=== PATIENT | male | born 1985 | race Caucasian/White ===

== ENCOUNTER 2019-02-03 17:08 | Emergency (ER) | payer BC ==
[2019-02-03] MEDS ORDERED: TOPROL XL50 MG PO (17:25)
[2019-02-03] MEDS ORDERED: ALEVE220 MG PO (17:26)
[2019-02-03] MEDS ORDERED: KLONOPIN0.5 MG PO (17:26)
[2019-02-03] MEDS ORDERED: BENADRYL25 MG PO (17:26)
[2019-02-03] MEDS ORDERED: CYCLOBENZAPRINE10 MG PO (17:27)
[2019-02-03] MEDS ORDERED: ALBUTEROL SULF8.5 GM INH (17:27)
[2019-02-03] MEDS ORDERED: NEXIUM20 MG PO (17:28)
[2019-02-03 19:05] LABS: BASOPHILS 0.2 % (0-2); EOSINOPHILS 0.7 % (0-7); HEMATOCRIT 45.5 % (42.0-54.0); HEMOGLOBIN 15.9 g/dL (13.5-17.5); IMMATURE GRANULOCYTES 0.4 % (0-5); LYMPHOCYTES 20.3 % (15-50); MCHC 34.9 g/dL (31.0-37.0); MCV 85.8 fL (80.0-100.0); MEAN PLATELET VOLUME 9.6 fL (7.4-10.4); MONOCYTES 6.4 % (2-11); PLATELET COUNT 208 10x3/uL (130-400); RDW 13.4 % (11.5-14.5); WBC 10.6 10x3/uL (4.8-10.8)
[2019-02-03 19:24] LABS: ALBUMIN 3.8 g/dL (3.4-5.0); ALKALINE PHOSPHATASE 109 U/L (46-116); ALT (SGPT) 98 U/L (10-68); BILIRUBIN - TOTAL 0.69 mg/dL (0.2-1.3); CALC OSMOLALITY 279 mosm/kg (275-300); CALCIUM 9.1 mg/dL (8.5-10.1); CARBON DIOXIDE 29.7 mmol/L (21.0-32.0); CHLORIDE - SERUM 102 mmol/L (98-107); CREATININE - SERUM 0.9 mg/dL (0.6-1.3); GLUCOSE 97 mg/dL (74-106); POTASSIUM - SERUM 4.5 mmol/L (3.5-5.1); PROTEIN - SERUM 7.8 g/dL (6.4-8.2); SODIUM 139 mmol/L (136-145); UREA NITROGEN 18 mg/dL (7-18); eGFR NON AFRICAN AMERICAN > 90 mL/min (90-120)
[2019-02-03] MEDS ORDERED: CLEOCIN HCL300 MG PO (19:30)
[2019-02-03 20:07] VITALS: BP 120/80
== END 2019-02-03 20:08 | disposition home or self-care (01) ==
LOC: D.ER 17:08 → EDBD 17:08 → D.ER 20:08
PROVIDERS: Emergency Medicine
DX: L03.116 Cellulitis of left lower limb (principal)

== ENCOUNTER 2019-07-10 16:35 | Emergency (ER) | payer BC ==
[~2019-07-10] VITALS: Ht 195.6 cm; Wt 192.7 kg
[~2019-07-10 16:35] MED LIST: ALBUTEROL SULF8.5 GM INH; ALEVE220 MG PO; BENADRYL25 MG PO; CLEOCIN HCL300 MG PO; CYCLOBENZAPRINE10 MG PO; KLONOPIN0.5 MG PO; NEXIUM20 MG PO; TOPROL XL50 MG PO
[2019-07-10 16:55] VITALS: Ht 195.6 cm; Wt 192.7 kg
[2019-07-10 17:42] LABS: HEMATOCRIT 27.4 % (42.0-54.0); HEMOGLOBIN 8.5 g/dL (13.5-17.5); MCH 27.5 pg (26.0-34.0); MCV 88.7 fL (80.0-100.0); MEAN PLATELET VOLUME 9.5 fL (7.4-10.4); RBC 3.09 10x6/uL (4.20-6.10); RDW 12.9 % (11.5-14.5); WBC 7.9 10x3/uL (4.8-10.8)
[2019-07-10 17:53] LABS: PLATELET COUNT 156 10x3/uL (130-400)
[2019-07-10 18:00] LABS: CALC OSMOLALITY 283 mosm/kg (275-300); CALCIUM 8.7 mg/dL (8.5-10.1); CARBON DIOXIDE 30.2 mmol/L (21.0-32.0); CHLORIDE - SERUM 105 mmol/L (98-107); GLUCOSE 101 mg/dL (74-106); POTASSIUM - SERUM 4.5 mmol/L (3.5-5.1); SODIUM 142 mmol/L (136-145); UREA NITROGEN 14 mg/dL (7-18); eGFR NON AFRICAN AMERICAN 90 mL/min (90-120)
[2019-07-10 18:09] LABS: ALBUMIN 3.7 g/dL (3.4-5.0); ALKALINE PHOSPHATASE 122 U/L (46-116); ALT (SGPT) 89 U/L (10-68); BILIRUBIN - TOTAL 0.51 mg/dL (0.2-1.3); PROTEIN - SERUM 8.2 g/dL (6.4-8.2)
[2019-07-10 18:17] LABS: LYMPHOCYTES 25 % (15-50); MONOCYTES 3 % (2-11); NEUTROPHILS 72 % (40-80); PLATELET ESTIMATE NORMAL
[2019-07-10 18:18] LABS: TARGET CELLS OCC
[2019-07-10 18:19] LABS: ROULEAUX OCC; TEAR DROP CELLS OCC
[2019-07-10] MEDS ORDERED: AUGMENTIN 875-11 TAB PO (18:38)
[2019-07-10 19:05] VITALS: BP 132/78
== END 2019-07-10 19:06 | disposition home or self-care (01) ==
LOC: D.ER 16:35
PROVIDERS: Family Medicine
DX: J32.9 Chronic sinusitis, unspecified (principal); I10 Essential (primary) hypertension; J45.909 Unspecified asthma, uncomplicated; L30.9 Dermatitis, unspecified; F41.9 Anxiety disorder, unspecified; K21.9 Gastro-esophageal reflux disease without esophagitis